=== PATIENT | male | born 1990 | race Caucasian/White ===

== ENCOUNTER 2021-06-12 14:09 | Emergency (ER) | payer MEDICARE, OTHER, MEDICAID, SELFPAY ==
[2021-06-12 14:18] VITALS: BP 145/93; PULSE 98; RESP 18; TEMP 37.5; O2SAT 98
--- NOTE | 2021-06-12 15:06 | ED.URI ---
HPI - URI/Sore Throat General Chief Complaint: Upper Respiratory Infection Stated Complaint: Sinus Congestion/Cough Time Seen by Provider: 06/12/21 15:06 Source: patient and RN notes reviewed Mode of arrival: ambulatory Limitations: no limitations History of Present Illness HPI Narrative: 30 year old male presents with concern for COVID. He reports nasal congestion and runny nose for two days. He reports dry coiugh and body aches. He reports exposure. He reports using mucinex. MD elicited complaint: cough and sore throat Related Data Home Medications Medication Instructions Recorded Confirmed amlodipine 5 mg PO DAILY 06/12/21 06/12/21 atorvastatin 80 mg PO DAILY 06/12/21 06/12/21 chlorthalidone 50 mg PO DAILY 06/12/21 06/12/21 clonidine 0.2 mg TRANSDERMAL DAILY 06/12/21 06/12/21 empagliflozin [Jardiance] 10 mg PO DAILY 06/12/21 06/12/21 hydralazine 50 mg PO TID 06/12/21 06/12/21 lisinopril 5 mg PO DAILY 06/12/21 06/12/21 metformin 500 mg PO BID 06/12/21 06/12/21 trazodone 50 mg PO DAILY 06/12/21 06/12/21 Allergies Allergy/AdvReac Type Severity Reaction Status Date / Time No Known Allergies Allergy Verified 06/12/21 14:59 Review of Systems Review of Systems: CONSTITUTIONAL: Reports malaise. Denies chills, sweats, or fever. EYES: Denies visual changes, redness, or discharge. ENT: Reports rhinorrhea, congestion. Denies sinus pain, otalgia and sore throat. CARDIOVASCULAR: Denies chest pain, palpitations, or edema. RESPIRATORY: Reports cough. Denies dyspnea. GASTROINTESTINAL: Denies abdominal pain, nausea, vomiting, diarrhea SKIN: Denies rash or itching. MUSCULOSKELETAL: Reports myalgia. NEUROLOGIC: Denies headache. All systems reviewed & are unremarkable except as noted in HPI and below PMFSH Comments At time of signature, agree with nursing past medical, surgical, social and family history. There is no relevant family history pertinent to the presenting complaint Exam Narrative: GENERAL: Well-appearing, well-nourished, and in no acute distress. HEAD: Normocephalic EYES: PERRLA, conjunctivae clear ENT: Nares clear, clear discharge. Mucous membranes moist. TM pearly lucia with dull light reflex bilaterally; no tragal tenderness. Oropharynx not erythematous without lesions. Tonsils not enlarged and without exudate, no drooling, no hoarseness, no trismus, uvula midline. NECK: Supple. No lymphadenopathy CHEST: Clear to auscultation, breath sounds equal. No wheezing, rhonchi, rales, or stridor. No respiratory distress, speaks in full sentences. HEART: Regular rate and rhythm. No murmur heard. SKIN: Warm, dry, no rash. NEURO: Alert and oriented x3. PSYCH: Normal mood and affect Course Course Emergency Course: Patient is aware of diagnosis, understands and agrees to treatment plan. Anticipatory guidance given. Patient agrees to follow-up as directed and is aware of reasons to seek care at the emergency department. Portions of this record may have been created with voice recognition software Level of Care: Express Care Visit Vital Signs Vital signs: Vital Signs Temperature 99.5 F 06/12/21 14:18 Pulse Rate 98 06/12/21 14:18 Respiratory Rate 18 06/12/21 14:18 Blood Pressure 145/93 H 06/12/21 14:18 Pulse Oximetry 98 06/12/21 14:18 Temperature 99.5 F 06/12/21 14:18 Pulse Rate 98 06/12/21 14:18 Respiratory Rate 18 06/12/21 14:18 Blood Pressure 145/93 H 06/12/21 14:18 Pulse Oximetry 98 06/12/21 14:18 Reviewed. patient has a history of hypertension MDM - URI/Sore Throat MDM Narrative Medical decision making narrative: Differential diagnosis considered: Bray virus, strep pharyngitis, allergic rhinitis, upper respiratory tract infection, sinusitis, rhinosinusitis, nasopharyngitis. viral pharyngitis, otitis media, otitis externa, pneumonia, bronchitis, viral cough syndrome, viral syndrome, and influenza. Exam findings show no acute concerns or changes; patient is non-toxic appearing and
== END 2021-06-12 15:13 | disposition home or self-care (01) ==
PROVIDERS: Nurse Practitioner Family; Emergency Provider Nurse Practitioner
DX: U07.1 COVID-19 (principal); E78.00 Pure hypercholesterolemia, unspecified; I10 Essential (primary) hypertension; E11.9 Type 2 diabetes mellitus without complications; G80.9 Cerebral palsy, unspecified
CPT/HCPCS: 87426; 99203; C9803; G0463

== ENCOUNTER 2021-09-28 17:09 | Emergency (ER) | payer MEDICARE, OTHER, MEDICAID, SELFPAY ==
--- NOTE | 2021-09-28 17:13 | ED.EAR ---
HPI - Ear Problem General Chief complaint: Ear Stated complaint: ear pain Time Seen by Provider: 09/28/21 17:13 Source: patient and RN notes reviewed History of Present Illness HPI Narrative: Patient is a 31-year-old male that presents to urgent care with complaints of left ear pain that started yesterday. Patient states he has been taking Benadryl and Tylenol. Denies of any fevers or drainage from the ear. No other acute complaints. No acute distress noted. Patient aware of the plan of care. Some parts of this dictation were generated by voice recognition software and may contain typographical and/or grammatical inaccuracies. Related Data Home Medications Medication Instructions Recorded Confirmed amlodipine 5 mg PO DAILY 06/12/21 09/28/21 atorvastatin 80 mg PO DAILY 06/12/21 09/28/21 chlorthalidone 50 mg PO DAILY 06/12/21 09/28/21 clonidine 0.2 mg TRANSDERMAL DAILY 06/12/21 09/28/21 empagliflozin [Jardiance] 10 mg PO DAILY 06/12/21 09/28/21 hydralazine 50 mg PO TID 06/12/21 09/28/21 lisinopril 5 mg PO DAILY 06/12/21 09/28/21 metformin 500 mg PO BID 06/12/21 09/28/21 Allergies Allergy/AdvReac Type Severity Reaction Status Date / Time No Known Allergies Allergy Verified 09/28/21 17:23 Review of Systems Review of Systems: CONSTITUTIONAL: Denies fever, chills, or sweats. EYES: Denies visual changes, redness, or discharge. ENT: Denies rhinorrhea, congestion, sore throat. Reports of left otalgia CARDIOVASCULAR: Denies chest pain, palpitations, or edema. RESPIRATORY: Denies cough or dyspnea. GASTROINTESTINAL: Denies abdominal pain, nausea, vomiting, or diarrhea. GENITOURINARY: Denies dysuria or hematuria. SKIN: Denies rash or itching. MUSCULOSKELETAL: Denies back pain, joint pain, or myalgia. NEUROLOGIC: Denies headache, numbness, or weakness. All other systems reviewed are negative, except as documented in HPI. PMFSH Comments At the time of my signature, I reviewed and agree with the nursing past medical, surgical, social, and family history. There is no relevant family history pertinent to the patient complaint. Exam Narrative: GENERAL: This is a well-nourished, well-developed patient, in no apparent distress. HEAD: normocephalic, atraumatic. EYES: PERRL. Sclera clear/white. Vision is grossly intact. EARS: External ears normal, right auditory canal clear and without drainage, mild injection with moderate erythema to left TM with erythemic left auditory canal without drainage. Right TM normal without perforation. Hearing grossly intact. NOSE: External nose normal with no obvious nasal discharge, nares without redness, no rhinorrhea. THROAT: Mucous membranes moist NECK: Neck supple CARDIOVASCULAR: Regular rate and rhythm without murmurs, gallops, or rubs. RESPIRATORY: Clear to auscultation. Breath sounds equal bilaterally. No wheezes, rales, or rhonchi. SKIN: warm, intact with no suspicious lesions or rash, good texture and turgor. NEURO: awake, alert, and oriented to person, place and time. There were no obvious focal neurologic abnormalities. EXTREMITIES: No clubbing, cyanosis, or edema. Course Course Level of Care: Express Care Visit Vital Signs Vital signs: Vital Signs Temperature 97.9 F 09/28/21 17:14 Pulse Rate 84 09/28/21 17:14 Respiratory Rate 20 09/28/21 17:14 Blood Pressure 139/82 09/28/21 17:14 Pulse Oximetry 98 09/28/21 17:14 Temperature 97.9 F 09/28/21 17:24 Pulse Rate 84 09/28/21 17:24 Respiratory Rate 20 09/28/21 17:24 Blood Pressure 139/82 09/28/21 17:24 Pulse Oximetry 98 09/28/21 17:24 Reviewed Medical Decision Making MDM Narrative Medical decision making narrative: Advised patient to continue Tylenol/Benadryl as needed. Complete the oral antibiotic regimen as prescribed. Use eardrops to the affected ear for at least the next 4 to 7 days. Use a warm compress for comfort. Do not put anything else in the ear such as [id number] eardrops, Q-tips
[2021-09-28 17:14] VITALS: BP 139/82; PULSE 84; RESP 20; TEMP 36.6; O2SAT 98
[2021-09-28 17:24] VITALS: BP 139/82; PULSE 84; RESP 20; TEMP 36.6; O2SAT 98
== END 2021-09-28 17:34 | disposition home or self-care (01) ==
PROVIDERS: Emergency Provider Nurse Practitioner Family; PCP Internal Medicine
DX: H60.92 Unspecified otitis externa, left ear (principal); H66.92 Otitis media, unspecified, left ear; E78.00 Pure hypercholesterolemia, unspecified; I10 Essential (primary) hypertension; G47.30 Sleep apnea, unspecified; E11.9 Type 2 diabetes mellitus without complications
CPT/HCPCS: 99213; G0463